=== PATIENT | male | born 1945 | race Caucasian/White ===

== ENCOUNTER → 2017-05-18 | Outpatient (CLI) | payer MEDICARE ==
[~2017-05-18] MED LIST: CATHETER FLUSH 10 ML SYR IV PRN; REGADENOSON 0.4 MG/5 ML SYR (LEXISCAN) IV ONE
[2017-05-18 13:00] VITALS: BP 128/70
[2017-05-18 13:05] VITALS: BP 137/69
[2017-05-18 13:07] VITALS: BP 130/69
--- NOTE | 2017-05-18 18:12 | STRESS TEST ---
DATE OF SERVICE: 05/18/2017 LEXISCAN MYOVIEW STRESS TEST REPORT REFERRING PHYSICIAN: Jayson Rolle DO. Baseline heart rate is 64. Baseline blood pressure 128/70. Baseline EKG sinus rhythm with right bundle-branch block. In summary, the patient received 10.62 mCi of technetium-99 Myoview and the resting images were obtained. Then, the patient received 0.4 mg of Lexiscan followed by 29.5 mCi of technetium-99 Myoview. Throughout the test, there were no EKG changes. The resting and stress images were reviewed and compared in the short axis, horizontal long axis, and vertical long axis views. Review of the images showed good radiotracer uptake with no significant ischemia or infarction. SSS is 2, SDS 0, TID value 0.97. On the gated images, the left ventricle appeared to be normal size with normal contractility. Calculated ejection fraction 71%. CONCLUSION: 1. The patient tolerated Lexiscan well. 2. No significant ischemia or infarction on SPECT images. 3. Normal left ventricular size with normal contractility. Calculated ejection fraction is 71%. Job ID: [id number] DocumentID: [id number] Dictated Date: 05/18/2017 14:40:14 Die Maker Stamping Date: 05/18/2017 18:12:04 Dictated By: BARBARA MARIE MD
== END ==
LOC: CARD 11:26
PROVIDERS: ATTEND Physician Assistant Medical
DX: I48.91 Unspecified atrial fibrillation (principal)
CPT/HCPCS: 78452; 93017

== ENCOUNTER 2017-07-28 10:12 | Day surgery (SDC) | payer MEDICARE ==
[~2017-07-28] VITALS: Ht 182.9 cm; Wt 95.3 kg
[2017-07-28] VITALS (12 sets, daily range): BP systolic 106–163; BP diastolic 64–95
[2017-07-28] MEDS ORDERED: NS IV 1000 ML 1,000 ML ONE ×2 (10:16→12:25)
[2017-07-28] MEDS ORDERED: LIDOCAINE 2% VISCOUS 15 ML UDC ONE (10:16)
[2017-07-28] MEDS ORDERED: NS IV 1000 ML 1,000 ML IV SCH (10:30)
[2017-07-28] MEDS ORDERED: APIX5TAB PO (11:09)
[2017-07-28] MEDS ORDERED: ASPI-983 PO (11:09)
[2017-07-28] MEDS ORDERED: MULT-35 PO (11:09)
[2017-07-28] MEDS ORDERED: VITA1CAP PO (11:09)
[2017-07-28] MEDS ORDERED: DRON400T2 PO (11:09)
[2017-07-28] MEDS ORDERED: ASCO10006 PO (11:09)
[2017-07-28] MEDS ORDERED: METO-387 PO (11:11)
[2017-07-28] MEDS ORDERED: SILD100T PO (11:14)
[2017-07-28] MEDS ORDERED: proPOfol 200 MG/20 ML (DIPRIVAN) VIAL IV ONE (12:20)
[2017-07-28] MEDS ORDERED: MIDAZOLAM 2 MG/2 ML (VERSED) VIAL ONE (12:20)
--- NOTE | 2017-07-28 13:13 | Progress Note-Standard ---
Standard Progress Note Progress Notes/Assess & Plan Time Seen by Provider: 12:36 Final Diagnosis Consulted for MAC sedation during CINDI/Cardioversion. Monitors on, equipment at bedside, history obtained. Propofol 70 mg IV, Versed 2 mg IV waldo well. VSS, report to RN care assumed. ASA 2 CHANTAL CRAWFORD CRNA Jul 28, 2017 13:13
--- NOTE | 2017-07-28 13:14 | Anesthesia-General Post-Op ---
MAC Patient Condition Mental Status/LOC: Same as Preop Cardiovascular: Satisfactory Nausea/Vomiting: Absent Respiratory: Satisfactory Pain: Controlled Complications: Absent Post Op Complications Complications None Follow Up Care/Instructions Patient Instructions None needed. Anesthesiology Discharge Order Discharge Order Patient is doing well, no complaints, stable vital signs, no apparent adverse anesthesia problems. No complications reported per nursing. CHANTAL CRAWFORD CRNA Jul 28, 2017 13:14
--- NOTE | 2017-07-28 13:15 | Progress Note-Standard ---
Standard Progress Note Progress Notes/Assess & Plan Time Seen by Provider: 12:36 Final Diagnosis addendum to previous record, diagnosis a-fib. CHANTAL CRAWFORD CRNA Jul 28, 2017 13:15
== END 2017-07-28 14:11 | disposition home or self-care (01) ==
LOC: SDC 10:12
PROVIDERS: ATTEND Internal Medicine Interventional Cardiology
DX: I48.0 Paroxysmal atrial fibrillation (principal); I08.1 Rheumatic disorders of both mitral and tricuspid valves
CPT/HCPCS: 93005; 93306; 93320; 93325

== ENCOUNTER → 2017-08-01 | Outpatient (CLI) | payer MEDICARE ==
[~2017-08-01] MED LIST changes: +APIX5TAB PO; +ASCO10006 PO; +ASPI-983 PO; -CATHETER FLUSH 10 ML SYR IV PRN; +DRON400T2 PO; +METO-387 PO; +MULT-35 PO; -REGADENOSON 0.4 MG/5 ML SYR (LEXISCAN) IV ONE; +SILD100T PO; +VITA1CAP PO
== END ==
LOC: CARD 10:19
PROVIDERS: ATTEND Internal Medicine Interventional Cardiology
DX: I10 Essential (primary) hypertension (principal); I48.1 Persistent atrial fibrillation; E66.3 Overweight; G47.30 Sleep apnea, unspecified

== ENCOUNTER 2017-10-13 06:49 | Day surgery (SDC) | payer MEDICARE ==
[~2017-10-13] VITALS: Ht 182.9 cm; Wt 95.3 kg
[2017-10-13] MEDS ORDERED: LIDOCAINE 1% INJ 20 ML 20 ML VIAL ONE (07:07)
[2017-10-13] MEDS ORDERED: NS IV 1000 ML 0 ML ONE (07:07)
[2017-10-13] MEDS ORDERED: NS IV 1000 ML 1,000 ML IV SCH (07:15)
[2017-10-13 07:22] VITALS: BP 127/75
== END 2017-10-13 09:57 | disposition home or self-care (01) ==
LOC: CATH 06:49
PROVIDERS: ATTEND Internal Medicine Interventional Cardiology
DX: I48.91 Unspecified atrial fibrillation (principal); I10 Essential (primary) hypertension; Z53.20 Procedure and treatment not carried out because of patient's decision for unspecified reasons
CPT/HCPCS: 87081; 93005

== ENCOUNTER → 2018-02-06 | Day surgery (SDC) | payer MEDICARE ==
[~2018-02-06] VITALS: Ht 182.9 cm; Wt 95.3 kg
[~2018-02-06] MED LIST changes: +NS IV 1000 ML 1,000 ML IV SCH
== END | disposition home or self-care (01) ==
LOC: CATH 11:35
PROVIDERS: ATTEND Internal Medicine Interventional Cardiology
DX: I48.1 Persistent atrial fibrillation (principal); G47.30 Sleep apnea, unspecified; I10 Essential (primary) hypertension; E66.3 Overweight; R00.1 Bradycardia, unspecified; Z79.899 Other long term (current) drug therapy; Z79.01 Long term (current) use of anticoagulants; Z87.891 Personal history of nicotine dependence; Z53.8 Procedure and treatment not carried out for other reasons; Z68.28 Body mass index [BMI] 28.0-28.9, adult
CPT/HCPCS: 93005

== ENCOUNTER → 2018-03-06 | Outpatient (CLI) | payer MEDICARE ==
[~2018-03-06] VITALS: Ht 182.9 cm; Wt 90.7 kg
[~2018-03-06] MED LIST changes: +LIDOCAINE 1% INJ 20 ML 20 ML VIAL INJ ONE; -NS IV 1000 ML 1,000 ML IV SCH
--- NOTE | 2018-03-06 11:18 | Diagnostic Imaging Report ---
INDICATION: Right breast lump. Patient reports prior breast injury. Ultrasound and mammogram demonstrate increased density and hypoechogenicity in the retroareolar right breast. Patient presents for biopsy. PROCEDURE: Patient was brought to the procedure room and placed on the table in the supine position. Ultrasound imaging of the right breast was performed to evaluate entry site. The right breast was then prepped and draped in usual sterile fashion. A small amount of 1% lidocaine was utilized for local anesthesia. 14-gauge Achieve needle was advanced and placed with its tip adjacent to the area of hypoechogenicity in the retroareolar right breast. A total of three core biopsies were obtained. Localizer clip was then deployed in the retroareolar region. Hemostasis was obtained using manual compression. Patient tolerated the procedure well and was sent for post procedure mammogram in satisfactory condition. IMPRESSION: Successful ultrasound guided core biopsy of the area of hypoechogenicity in the retroareolar right breast. Pathology results are currently pending. Dictated by: Dictated on workstation # [id number]
--- NOTE | 2018-03-06 11:23 | Diagnostic Imaging Report ---
INDICATION: Right breast density. Patient status post ultrasound-guided core biopsy. CC and ML views of the right breast were obtained post biopsy. Biopsy clip is identified in the retroareolar right breast. There is retroareolar density which may represent gynecomastia. No suspicious calcifications are seen IMPRESSION: Biopsy marker clip is located in the retroareolar right breast. Pathology results are currently pending. Dictated by: Dictated on workstation # [id number]
== END ==
LOC: RAD 09:22
PROVIDERS: ATTEND Surgery
DX: N60.91 Unspecified benign mammary dysplasia of right breast (principal); N61.0 Mastitis without abscess; N63.10 Unspecified lump in the right breast, unspecified quadrant
CPT/HCPCS: 19083; 88305

== ENCOUNTER → 2018-06-29 | Day surgery (SDC) | payer MEDICARE ==
[~2018-06-29] VITALS: Ht 182.9 cm; Wt 97.1 kg
[~2018-06-29] MED LIST changes: -LIDOCAINE 1% INJ 20 ML 20 ML VIAL INJ ONE; +LIDOCAINE 1% INJ 20 ML 20 ML VIAL ONE
--- OUTSIDE RECORDS SUMMARY | 2018-06-29 08:54 | XMS REPORT | Continuity of Care Document ---
Author Author [facility] Organization [facility] Address Unknown Phone Unavailable Allergies Active Description Code Type Severity Reaction Onset Reported/Identified Relationship to Patient Clinical Status Yes BEE MODERATE DERMATOLOGICAL - HIV Yes NO KNOWN DRUG ALLERGIES UNKNOWN NO KNOWN DRUG ALLERG Yes No Allergy Information Available [id number] Drug Allergy Unknown N/A 2017 Yes No Known Drug Allergies [id number] Drug Allergy Unknown N/A 07/28/2017 Medications Medication Packaging Start Date Stop Date Route Dosage Sig LACTATED RINGERS 500CC IV BAG INJ ml 07/26/2017 07/26/2017 ONCE&1507 ENOXAPARIN SYRINGE INJ 100 MG (LOVENOX SYRINGE) MG 07/26/2017 07/26/2017 ONCE&1517 LACTATED RINGERS 1000CC IV BAG INJ ml 05/26/2018 06/02/2018 CONTINUOUSEVERY 0 Hour CEFAZOLIN VIAL INJ 1 GM (ANCEF) GM 05/26/2018 05/26/2018 ONCE&1130 Problems Date Dx Coded Attending Type Code Diagnosis Diagnosed By 03/20/2016 PATEL WILLIAMSON MD Ot G47.33 OBSTRUCTIVE SLEEP APNEA (ADULT) (PEDIATR 03/22/2016 PATEL WILLIAMSON MD Ot G47.33 OBSTRUCTIVE SLEEP APNEA (ADULT) (PEDIATR 05/19/2017 MALLY KUNZ PA-C Ot I48.91 UNSPECIFIED ATRIAL FIBRILLATION 05/24/2017 MALLY KUNZ PA-C Ot I48.91 UNSPECIFIED ATRIAL FIBRILLATION 06/07/2017 MALLY KUNZ PA-C Ot I48.91 UNSPECIFIED ATRIAL FIBRILLATION 06/17/2017 MALLY KUNZ PA-C Ot I48.91 UNSPECIFIED ATRIAL FIBRILLATION 07/26/2017 Isidro Correa 427.31 ATRIAL FIBRILLATION 07/26/2017 Isidro Correa I48.91 UNSPECIFIED ATRIAL FIBRILLATION 07/28/2017 ARELI BRYANT, Cesia ERICKSON Ot I08.1 RHEUMATIC DISORDERS OF BOTH MITRAL AND T 07/28/2017 Cesia SINGLETON MD Ot I48.0 PAROXYSMAL ATRIAL FIBRILLATION 07/29/2017 ARELI BRYANT, Cesia ERICKSON Ot I08.1 RHEUMATIC DISORDERS OF BOTH MITRAL AND T 07/29/2017 ARELI BRYANT, Cesia ERICKSON Ot I48.0 PAROXYSMAL ATRIAL FIBRILLATION 08/02/2017 ARELI BRYANT, Cesia ERICKSON Ot E66.3 OVERWEIGHT 08/02/2017 Cesia SINGLETON MD Ot G47.30 SLEEP APNEA, UNSPECIFIED 08/02/2017 Cesia SINGLETON MD Ot I10 ESSENTIAL (PRIMARY) HYPERTENSION 08/02/2017 Cesia SINGLETON MD Ot I48.1 PERSISTENT ATRIAL FIBRILLATION 10/13/2017 Cesia SINGLETON MD Ot I10 ESSENTIAL (PRIMARY) HYPERTENSION 10/13/2017 Cesia SINGLETON MD Ot I48.91 UNSPECIFIED ATRIAL FIBRILLATION 10/13/2017 Cesia SINGLETON MD Ot Z53.20 PROC/TRTMT NOT CRD OUT BEC PT DECISION F 10/14/2017 Cesia SINGLETON MD Ot I10 ESSENTIAL (PRIMARY) HYPERTENSION 10/14/2017 Cesia SINGLETON MD Ot I48.91 UNSPECIFIED ATRIAL FIBRILLATION 10/14/2017 Cesia SINGLETON MD Ot Z53.20 PROC/TRTMT NOT CRD OUT BEC PT DECISION F 02/06/2018 MALLY KUNZ PA-C Ot I48.91 UNSPECIFIED ATRIAL FIBRILLATION 02/06/2018 Cesia SINGLETON MD Ot E66.3 OVERWEIGHT 02/06/2018 Cesia SINGLETON MD Ot G47.30 SLEEP APNEA, UNSPECIFIED 02/06/2018 Cesia SINGLETON MD Ot I10 ESSENTIAL (PRIMARY) HYPERTENSION 02/06/2018 Cesia SINGLETON MD Ot I48.1 PERSISTENT ATRIAL FIBRILLATION 02/08/2018 Cesia SINGLETON MD Ot E66.3 OVERWEIGHT 02/08/2018 Cesia SINGLETON MD Ot G47.30 SLEEP APNEA, UNSPECIFIED 02/08/2018 Cesia SINGLETON MD Ot I10 ESSENTIAL (PRIMARY) HYPERTENSION 02/08/2018 Cesia SINGLETON MD Ot I48.1 PERSISTENT ATRIAL FIBRILLATION 02/08/2018 Cesia SINGLETON MD Ot R00.1 BRADYCARDIA, UNSPECIFIED 02/08/2018 Cesia SINGLETON MD Ot Z53.8 PROCEDURE AND TREATMENT NOT CARRIED OUT 02/08/2018 Cesia SINGLETON MD Ot Z68.28 BODY MASS INDEX (BMI) 28.0-28.9, ADULT 02/08/2018 Cesia SINGLETON MD Ot Z79.01 FERTILIZER MIXER (CURRENT) USE OF ANTICOAGULANT 02/08/2018 Cesia SINGLETON MD Ot Z79.899 OTHER FERTILIZER MIXER (CURRENT) DRUG THERAPY 02/08/2018 Cesia SINGLETON MD Ot Z87.891 PERSONAL HISTORY OF NICOTINE DEPENDENCE 02/14/2018 Cesia SINGLETON MD Ot E66.3 OVERWEIGHT 02/14/2018 Cesia SINGLETON MD Ot G47.30 SLEEP APNEA, UNSPECIFIED 02/14/2018 Cesia SINGLETON MD Ot I10 ESSENTIAL (PRIMARY) HYPERTENSION 02/14/2018 Cesia SINGLETON MD Ot I48.1 PERSISTENT ATRIAL FIBRILLATION 02/14/2018 Cesia SINGLETON MD Ot R00.1 BRADYCARDIA, UNSPECIFIED 02/14/2018 Cesia SINGLETON MD Ot Z53.8 PROCEDURE AND TREATMENT NOT CARRIED OUT 02/14/2018 Cesia SINGLETON MD Ot Z68.28 BODY MASS INDEX (BMI) 28.0-28.9, ADULT 02/14/2018 Cesia SINGLETON MD Ot Z79.01 CUSTODIAL (CURRENT) USE OF ANTICOAGULANT 02/14/2018 Cesia SINGLETON MD Ot Z79.899 OTHER CUSTODIAL (CURRENT) DRUG THERAPY 02/14/2018 Cesia SINGLETON MD Ot Z87.891 PERSONAL HISTORY OF NICOTINE DEPENDENCE 02/14/2018 Cesia SINGLETON MD Ot E66.3 OVERWEIGHT 02/14/2018 Cesia SINGLETON MD Ot G47.30 SLEEP APNEA, UNSPECIFIED 02/14/2018 Cesia SINGLETON MD Ot I10 ESSENTIAL (PRIMARY) HYPERTENSION 02/14/2018 Cesia SINGLETON MD Ot I48.1 PERSISTENT ATRIAL FIBRILLATION 02/14/2018 Cesia SINGLETON MD, Ot R00.1 BRADYCARDIA, UNSPECIFIED 02/14/2018 Cesia SINGLETON MD Ot Z53.8 PROCEDURE AND TREATMENT NOT CARRIED OUT 02/14/2018 Cesia SINGLETON MD, Ot Z68.28 BODY MASS INDEX (BMI) 28.0-28.9, ADULT 02/14/2018 Cesia SINGLETON MD Ot Z79.01 CUSTODIAL (CURRENT) USE OF ANTICOAGULANT 02/14/2018 Cesia SINGLETON MD, Ot Z79.899 OTHER FERTILIZER MIXER (CURRENT) DRUG THERAPY 02/14/2018 Cesia SINGLETON MD, Ot Z87.891 PERSONAL HISTORY OF NICOTINE DEPENDENCE 02/27/2018 MATTKIMBER NATHAN DO Ot R92.8 OTH ABN AND INCONCLUSIVE FINDINGS ON DX 03/03/2018 [facility] KIMBER DICK Ot R92.8 OTH ABN AND INCONCLUSIVE FINDINGS ON DX 03/06/2018 MATT KIMBER DICK Ot N63.10 UNSPECIFIED LUMP IN THE RIGHT BREAST, UN 03/06/2018 MATT KIMBER DICK Ot R92.8 OTH ABN AND INCONCLUSIVE FINDINGS ON DX 03/16/2018 MATT RADHA DICKTIE Ot N60.91 UNSPECIFIED BENIGN MAMMARY DYSPLASIA OF 03/16/2018 MATT RADHA DICKTIE Ot N61.0 MASTITIS WITHOUT ABSCESS 03/16/2018 MATT KIMBER DICK Ot N63.10 UNSPECIFIED LUMP IN THE RIGHT BREAST, UN 04/03/2018 MATT RADHA DICKTIE Ot N60.91 UNSPECIFIED BENIGN MAMMARY DYSPLASIA OF 04/03/2018 MATT RADHA DICKTIE Ot N61.0 MASTITIS WITHOUT ABSCESS 04/03/2018 MATT AMANDA DICKROUTIE Ot N63.10 UNSPECIFIED LUMP IN THE RIGHT BREAST, UN 04/07/2018 MATT KIMBER DICK Ot N60.91 UNSPECIFIED BENIGN MAMMARY DYSPLASIA OF 04/07/2018 MATTKIMBER NATHAN DO Ot N61.0 MASTITIS WITHOUT ABSCESS 04/07/2018 KIMBER GUTIERREZ DO Ot N63.10 UNSPECIFIED LUMP IN THE RIGHT BREAST, UN Procedures There is no data. Results Test Result Range Comprehensive Metabolic Panel - 01/06/17 08:32 Albumin 4.0 g/dL 3.6-5.1 ALP 91 U/L 35-130 ALT 17 U/L 6-45 Anion Gap 11 6-14 AST 19 U/L 2-40 BUN 16 mg/dL 5-25 Calcium 9.6 mg/dL 8.3-10.4 Chloride 100 mmol/L 95-114 CO2 26 mEq/L 22-33 Creat 1.09 mg/dL 0.50-1.50 eGFR 66 mL/min/1.73m2 >59 Globulin 3.0 g/dL 2.3-3.5 Glucose 93 mg/dL 70-110 Osmo 276 280-295 Potassium 4.4 mmol/L 3.5-5.3 Sodium 133 mmol/L 134-148 TBil 0.5 mg/dL 0.2-1.2 TP 7.0 g/dL 6.0-8.3 Holter Montor 24 Hour - 05/05/17 09:06 Holter Monitor 24 Hour Complete Cardiac Panel - 07/26/17 14:49 CK 93 U/L 26-174 CK-MB 1.2 ng/ml 0.0-9.2 Myoglobin 33.5 ng/ml 1.6-154.9 Troponin <0.020 ng/mL 0.0-0.4 Methicillin resistant Staphylococcus aureus (MRSA) screening culture - 07:25 Methicillin resistant Staphylococcus aureus (MRSA) screening culture NEG NRG MRSA Screen - 05/17/18 12:45 FINAL CULTURE RESULTS MRSA Negative Nasal Culture MEDIA PLATED Setup at 12:55 on 05/17/2018 Protime - 05/17/18 12:45 INR 1.4 1.0-4.0 Protime 16.4 Sec 9.9-12.8 Protime - 05/26/18 10:17 INR 1.1 1.0-4.0 Protime 12.8 Sec 9.9-12.8 Surgical Pathology - 05/26/18 12:10 Surg Path Sent to [facility] Pathology Testosterone - 06/05/18 09:51 Testosterone 468.53 ng/dL 127.18-1020.36 Encounters ACCT No. Visit Date/Time Discharge Status Pt. Type Provider Facility Loc./Unit Complaint [id number] 04/11/2014 10:54:09 04/11/2014 23:59:59 CLS Outpatient Patrica Randolph [id number] 03/06/2018 09:22:00 03/06/2018 23:59:59 CLS Outpatient KIMBER GUTIERREZ DO [facility] RAD RT BREAST MASS [id number] 02/06/2018 11:35:00 02/06/2018 23:59:59 CLS Outpatient Cesia SINGLETON MD [facility] CATH AF [id number] 10/13/2017 06:49:00 10/13/2017 09:57:00 DIS Outpatient Cesia SINGLETON MD [facility] AFIB,HTN [id number] 08/01/2017 10:19:00 08/01/2017 23:59:59 CLS Outpatient Cesia SINGLETON MD [facility] CARD I10 HTN [id number] 07/28/2017 10:12:00 07/28/2017 14:11:00 DIS Outpatient Cesia SINGLETON MD [facility] SDC PERSISTENT AFIB W/RVR [id number] 05/18/2017 11:26:00 05/18/2017 23:59:59 CLS Outpatient MALLY KUNZ PA-C [facility] CARD AF [id number] 03/19/2016 20:00:00 03/20/2016 06:10:00 DIS Outpatient PATEL WILLIAMSON MD [facility] SLEEP PAUL [id number] 06/29/2018 10:00:00 PEN Preadmit Cesia SINGLETON MD [facility] AF-FERTILIZER MIXER SURVEILLANCE [id number] 05/17/2018 11:56:00 Document Registration [id number] 06/05/2018 09:45:00 06/05/2018 23:59:00 DIS Outpatient Jayson Rolle [id number] 05/26/2018 08:44:00 05/26/2018 13:24:00 DIS Outpatient Kimber Gutierrez [id number] 05/17/2018 11:56:00 05/17/2018 23:59:00 DIS Outpatient Amanda Gutierrezaden [id number] 02/15/2018 09:51:00 02/15/2018 23:59:00 DIS Outpatient MattAmanda mckeonaden [id number] 02/02/2018 09:44:00 02/02/2018 23:59:00 DIS Outpatient Jayson Rolle [id number] 11/30/2017 10:00:00 11/30/2017 23:59:00 DIS Outpatient Jayson Rolle [id number] 07/26/2017 14:38:00 07/26/2017 17:10:00 DIS Outpatient Isidro Correa [id number] 05/05/2017 09:03:00 05/05/2017 23:59:00 DIS Outpatient Adrián Llanos [id number] 01/06/2017 08:27:00 01/06/2017 23:59:00 DIS Outpatient Adrián Llanos [id number] 07/26/2017 15:17:53 Document Registration
[2018-06-29 09:24] VITALS: BP 133/98
--- NOTE | 2018-06-29 14:10 | Implantation of Loop Monitor ---
Implant of Loop Monitior IMPLANTATION OF LOOP MONITOR REPORT DATE OF PROCEDURE: 06/29/18 PERFORMING PHYSICIAN: Dr. Kye Perez. INDICATION: Paroxysmal atrial fibrillation, Long-term surveillance of atrial fibrillation PREOP DIAGNOSIS: Paroxysmal atrial fibrillation, Long-term surveillance of atrial fibrillation POSTOP DIAGNOSIS: Paroxysmal Atrial fibrillation, s/p implantation of loop recorder. PROCEDURE DETAILS: The patient is a 73 male with history of paroxysmal atrial fibrillation requiring long-term surveillance. Therefore implantable loop recorder was discussed and agreed with the patient. Informed consent was taken. All risks and complications were discussed at length. The patient was draped and prepped in the usual sterile fashion. Local anesthesia was lidocaine, which was given in the substernal area close to the 4th intercostal space. Loop monitor was implanted according to the protocol. Steri-Strips were placed at the end of the procedure. There were no complications and the patient tolerated the procedure well. The device was interrogated with a voltage of 0.26 mV. ANESTHESIA: Local anesthesia with lidocaine. COMPLICATIONS: None CONTRAST/FLUOROSCOPY: None CONCLUSION: 1. Successful implantation of loop monitor for proximal atrial fibrillation. 2. No complication and the patient tolerated the procedure well. Marianne Perez MD, RS, CCDS Cardiac Electrophysiology Cesia PEREZ MD Jun 29, 2018 2:10 pm
== END | disposition home or self-care (01) ==
LOC: CATH 08:48
PROVIDERS: ATTEND Internal Medicine Interventional Cardiology
DX: I48.0 Paroxysmal atrial fibrillation (principal); I10 Essential (primary) hypertension; R00.1 Bradycardia, unspecified; G47.30 Sleep apnea, unspecified; Z87.891 Personal history of nicotine dependence; Z79.01 Long term (current) use of anticoagulants; Z79.899 Other long term (current) drug therapy
CPT/HCPCS: 33285

== ENCOUNTER → 2018-08-02 | Outpatient (CLI) | payer MEDICARE ==
[~2018-08-02] MED LIST changes: -LIDOCAINE 1% INJ 20 ML 20 ML VIAL ONE
== END | disposition home or self-care (01) ==
LOC: PREOP 05:50
PROVIDERS: ATTEND Internal Medicine Interventional Cardiology
DX: Z01.818 Encounter for other preprocedural examination (principal)

== ENCOUNTER 2018-08-14 06:59 | Day surgery (SDC) | payer MEDICARE ==
[~2018-08-14] VITALS: Ht 182.9 cm; Wt 90.7 kg
[2018-08-14] VITALS (24 sets, daily range): BP systolic 94–141; BP diastolic 43–102
[~2018-08-14 06:59] MED LIST changes: +HEPARIN IV ONE; +HEParin 1000 UNIT/ML (10ML VIAL) FOR BOLUS ONE; +LIDOCAINE 1% INJ 20 ML 20 ML VIAL ONE; +NS IV 1000 ML 1,000 ML ONE
[2018-08-14] MEDS ORDERED: HEParin DRIP 25000 UNIT/500ML 500 ML IV ONE (07:01)
[2018-08-14] MEDS: NS IV 1000 ML 1,000 ML IV SCH ×3 (07:06→17:23)
[2018-08-14 07:20] LABS: HEMOGLOBIN 16.3 G/DL (13.3-17.7); MEAN PLATELET VOLUME 9.9 FL (7.4-10.4); RED CELL DISTRIBUTION WIDTH 13.6 % (10.0-14.5); WHITE BLOOD COUNT 7.7 10^3/uL (4.3-11.0)
[2018-08-14] MEDS ORDERED: SEVOFLURANE (ULTANE) 15 ML INHAL SOLN ONE ×3 (07:21→15:12)
[2018-08-14] MEDS ORDERED: fentaNYL INJECTION 100 MCG/2 ML AMP ONE (07:21)
[2018-08-14] MEDS ORDERED: ONDANSETRON 4 MG/2 ML (SDV) Z0FRAN ONE (07:21)
[2018-08-14] MEDS ORDERED: proPOfol 200 MG/20 ML (DIPRIVAN) VIAL IV ONE (07:21)
[2018-08-14] MEDS ORDERED: MIDAZOLAM 2 MG/2 ML (VERSED) VIAL ONE (07:21)
[2018-08-14] MEDS ORDERED: ROCURONIUM 10 MG/ML 5 ML SYRINGE IV ONE ×2 (07:21→10:59)
[2018-08-14 07:34] LABS: INR 1.1 (0.8-1.4); PROTHROMBIN TIME PATIENT 14.7 SEC (12.2-14.7)
[2018-08-14 07:41] LABS: ALANINE AMINOTRANSFERASE 28 U/L (0-55); ALBUMIN 4.2 GM/DL (3.2-4.5); ALKALINE PHOSPHATASE 107 U/L (40-136); BILIRUBIN,TOTAL 0.5 MG/DL (0.1-1.0); BUN/CREATININE RATIO 16; CALCIUM 9.9 MG/DL (8.5-10.1); CARBON DIOXIDE 24 MMOL/L (21-32); CHLORIDE 104 MMOL/L (98-107); CREATININE SERUM 1.17 MG/DL (0.60-1.30); GFR ESTIMATED > 60; GLUCOSE 94 MG/DL (70-105); POTASSIUM 4.3 MMOL/L (3.6-5.0); SODIUM 139 MMOL/L (135-145); TOTAL PROTEIN 7.4 GM/DL (6.4-8.2)
[2018-08-14] MEDS ORDERED: LIDOCAINE 1% INJ 20 ML 20 ML VIAL ONE (07:54)
[2018-08-14 08:04] LABS: BILIRUBIN,URINE NEGATIVE (NEGATIVE); CLARITY,URINE CLEAR; COLOR,URINE YELLOW; GLUCOSE, URINE (UA) NEGATIVE (NEGATIVE); KETONES,URINE NEGATIVE (NEGATIVE); LEUKOCYTE ESTERASE ,URINE NEGATIVE (NEGATIVE); NITRITE,URINE NEGATIVE (NEGATIVE); PH,URINE 6.5 (5-9); PROTEIN,URINE NEGATIVE (NEGATIVE); UROBILINOGEN,URINE NORMAL (NORMAL)
[2018-08-14 08:13] LABS: AMORPHOUS SEDIMENT,UR RARE AMOR URATES /LPF; BACTERIA,URINE NEGATIVE /HPF; RBC,URINE RARE /HPF; SQUAMOUS EPITHELIAL CELL,UR RARE /HPF
[2018-08-14] MEDS ORDERED: PHENYLEPHRINE 100 MCG/ML 10 ML (ANESTHESIA) SYR ONE ×2 (08:13→14:40)
[2018-08-14] MEDS ORDERED: ISOPROTERENOL 0.2 MG/D5W 50 ML IV ONE (08:15)
[2018-08-14] MEDS ORDERED: LACTATED RINGERS 1,000 ML IV ONE ×2 (08:36→09:26)
[2018-08-14] MEDS ORDERED: HEParin 1000 UNIT/ML (10ML VIAL) FOR BOLUS ONE ×2 (10:17→11:39)
[2018-08-14] MEDS ORDERED: PROTAMINE 50 MG/5 ML VIAL ONE (15:18)
--- NOTE | 2018-08-14 15:18 | Cardiac Procedure Note-CS/ASA ---
Pre-Procedure Note Pre-Op Procedure Note H&P Reviewed The H&P was reviewed, patient examined and no changes noted. Date H&P Reviewed: August 14, 2018 Time H&P Reviewed: 08:00 Conscious Sedation Pre-Proced Time 08:00 ASA Score 3 For ASA 3 and 4: Consider anesthesia and medical clearance. Also, for patients with a history of failed moderate sedation consider anesthesia. Airway Lungs Heart ASA score ASA 1: a normal healthy patient ASA 2: a patient with a mild systemic disease (mid diabetes, controlled hypertension, obesity ASA 3: a patient with a severe systemic disease that limits activity (angina , COPD, prior Myocardial infarction) ASA 4: a patient with an incapacitating disease that is a constant threat to life (CHF, renal failure) ASA 5: a moribund patient not expected to survive 24 hrs. (ruptured aneurysm) ASA 6: a declared brain- patient whose organs are being harvested. For emergent operations, add the letter E after the classification Mallampati Classification Grade 1 Sedation Plan Analgesia, Amnesia, Plan communicated to team members, Discussed options with patient/fam, Discussed risks with patient/fam The patient is an appropriate candidate to undergo the planned procedure, sedation, and anesthesia. The patient immediately re-assessed prior to indication. Cesia SINGLETON MD August 14, 2018 15:18
--- NOTE | 2018-08-14 15:19 | Electrophysiology Procedure ---
EP Procedure DATE OF SERVICE:08/14/18 CARDIAC RADIATION THERAPY TECHNOLOGIST: Marianne Perez MD, [facility], [facility]. INDICATION: Persistent atrial fibrillation. PREOPERATIVE DIAGNOSIS: Persistent atrial fibrillation. POSTOPERATIVE DIAGNOSES: 1. Persistent atrial fibrillation, status post atrial fibrillation ablation with PVI, roofline, CFAE ablation. 2. Left atrial flutter, mitral isthmus dependent, status post left atrial flutter ablation. 3. Typical right atrial flutter, CTI dependent, status post right atrial flutter ablation. HISTORY: This is a 73-year-old gentleman who has history of paroxysmal atrial fibrillation for 17 years and has been on flecainide and aspirin. Patient was previously not on oral anticoagulation but was started on [place]. He had a previous transesophageal echocardiogram and cardioversion done on 07/28/2017. However during the CINDI the patient converted to sinus rhythm on his own. Normal EF. Patient continued to have paroxysmal atrial fibrillation but over the last one year converted to persistent atrial fibrillation with controlled ventricular rate. The patient was refractory to multiple antiarrhythmics including multaq, propafenone, flecainide. Since rhythm control is over to fall to statin for this particular patient and implantable loop recorder was done. Also the patient has a class I indication for atrial fibrillation ablation. Atrial fibrillation ablation was discussed at length including all risks and complications. PROCEDURE PERFORMED: 1. Comprehensive EP study with induction. 2. Fluoroscopy. 3. Left atrial pacing and recording. 3. Drug infusion 4. Pulmonary vein isolation. 5. Additional atrial fibrillation ablation with roofline. 6. Additional atrial fibrillation ablation with complex fractionated atrial electrogram ablation. 7. Left atrial flutter, mitral isthmus dependent, ablation performed. 8. Ablation of typical atrial flutter (CTI dependent). 9. Comprehensive 3D mapping with the carto system. 10. Intracardiac echocardiogram. COMPLICATION: None. ESTIMATED BLOOD LOSS: 10 mL. CONTRAST USED: None. FLUOROSCOPY TIME: 20.4 minutes. FLUOROSCOPY DOSE: 1809 mgy. SPECIMENS: None. ANESTHESIA: Done by our anesthesia colleagues. ANTICOAGULATION: Eliquis, IV heparin. PROCEDURE IN DETAIL: After informed consent was taken, the patient was brought to the EP lab. Anesthesia was provided by our anesthesia colleagues. The patient was draped and prepped in the usual sterile fashion. The patient presented to the EP lab in atrial fibrillation rhythm.3D mapping was done with Carto system. Left atrial pacing and recording was also done. Access was gained in the right femoral vein with two 8-Japanese sheaths. Left access in left femoral vein was gained with two 6 Japanese sheaths. A his catheter and a CS catheter were advanced through the 6 Japanese sheaths in the left femoral vein. Intracardiac echocardiogram was performed with an ICE catheter. Numerous images were taken of the RV, RA, left atrium and LV. There was no pericardial effusion. There was no thrombus in the left atrium or left atrial appendage. All 4 pulmonary veins were identified. A carto-sound map was created with the ice catheter. We then advanced a guidewire into the superior vena cava. A long sheath was advanced with the transseptal needle. Under fluoroscopic and echocardiogram guidance, transseptal puncture was done once through the fossa ovalis. Left atrial pressure was documented. IV heparin bolus was given followed by heparin infusion. ACT target over 350 seconds. Patient was on uninterrupted oral anticoagulation therapy. The transseptal needle was taken out and a PENTARAY mapping catheter was utilized to perform voltage mapping of the left atrium. We also performed activation and propagation mapping. Right-sided catheters demonstrated an organized atrial tachycardia, however mapping catheter in the left atrium demonstrated atrial fibrillation. We also performed mapping for complex fractionated atrial electrograms, these were tagged. These atrial electrograms were found in the roof area, posterior wall as well as left superior pulmonary veins. Therefore we started with CFAE ablations. No significant change in atrial fibrillation was noted. No clear drivers were identified. We then proceeded with pulmonary vein isolation. Pulmonary vein isolation was performed for the left pulmonary veins. Exit block was confirmed. We then proceeded to the right pulmonary vein. Exit block was again confirmed with high output pacing in each vein and demonstrating dissociation of the left atrium. The patient continued to be in atrial fibrillation therefore we proceeded with the roofline. During ablation for the roofline, patient converted to sinus rhythm. However in a few minutes the patient went back into organized atrial flutter. We performed activation and propagation mapping of left atrial flutter and demonstrated a reentrant phenomenon which was mitral annular dependent. Therefore a mitral line was created from the posterior mitral annulus to the left superior pulmonary vein. The atrial flutter cycle length was around 240 ms. Once left flutter line was completed, the cycle length changed from 240 ms to 275 ms. Re-mapping demonstrated block at the level of the mitral line. After 30 minutes, we rechecked all the 4 pulmonary veins and demonstrated exit block despite high output pacing. We then pulled the ablation catheter as well as the transseptal catheter into the right atrium. IV heparin was discontinued. Intracardiac echocardiogram demonstrated no pericardial effusion. Activation mapping was performed in the right atrium. This demonstrated a reentrant atrial flutter. Entrainment was performed by pacing at the CTI and post-pacing interval was within 20 ms of the tachycardia cycle length, confirming typical right atrial flutter. Typical atrial flutter ablation was performed under ultrasound guidance. At the CTI a pouch was demonstrated by ultrasound and a ridge at the caval aspect. A deflectable steering catheter was utilized to perform typical atrial flutter ablation. Termination of tachycardia was noted once the line was almost completed. We rechecked the line and potential gaps re-ablated. We checked bidirectional block by pacing from opposite aspects of the line with the conduction time of around 200 ms. High dose Isuprel infusion was given at 20 g with no induction of atrial fibrillation, atrial tachycardia or atrial flutter. We then waited for 30 minutes and reconfirmed bidirectional block across the CTI ablation line. Final intracardiac echocardiogram images demonstrated no pericardial effusion. All the sheaths were taken out. 10 mg of IV protamine was given. Figure of 8 sutures were done in both venous access and manual compression done for 5 minutes. Hemostasis was achieved. Patient tolerated the procedure well and did not have any complications. The patient left the EP lab in sinus rhythm. Total ablation time 5295 seconds. PLAN: The patient will be observed overnight and will be discharged home tomorrow with precise followup instructions. Marianne Perez MD, RS, CCDS Cardiac Electrophysiology Cesia PEREZ MD August 14, 2018 15:19
--- NOTE | 2018-08-14 15:27 | History & Physicial-Cardiolgy ---
HPI-Cardiology Cardiology Consultation: Date of Consultation 08/14/18 Date of Admission Attending Physician Cesia Perez MD Admitting Physician Jayson Rolle DO Consulting Physician Cesia PEREZ MD HPI: Time Seen by a Provider: 08:00 Chief Complaint: Persistent atrial fibrillation. This is a 73-year-old gentleman who has history of paroxysmal atrial fibrillation for 17 years and has been on flecainide and aspirin. Patient was previously not on oral anticoagulation but was started on [place]'s. He had a previous transesophageal echocardiogram and cardioversion done on 07/28/2017. However during the CINDI the patient converted to sinus rhythm on his own. Normal EF. Patient continued to have paroxysmal atrial fibrillation but over the last one year converted to persistent atrial fibrillation with controlled ventricular rate. The patient was refractory to multiple antiarrhythmics including multaq, propafenone, flecainide. Since rhythm control is over to fall to statin for this particular patient and implantable loop recorder was done. Also the patient has a class I indication for atrial fibrillation ablation. Atrial fibrillation ablation was discussed at length including all risks and complications. Review of Systems-Cardiology Review of Systems Constitutional: As described under HPI; No As described under HPI, No no symptoms reported, No chills, No fever, No lightheadedness Eyes: No As described under HPI, No no symptoms reported, No blindness, No blurred vision, No contact lenses, No drainage, No decreased acuity, No foreign body sensation, No pain, No vision change Ears/Nose/Throat: No As described under HPI, No no symptoms reported, No chronic hearing loss, No ear discharge, No ear pain, No nasal drainage, No ulcerations Respiratory: No no symptoms reported; As described under HPI; No As described under HPI, No cough, No orthopnea, No shortness of breath, No SOB with excertion Cardiovascular: No no symptoms reported; As described under HPI; No As described under HPI, No chest pain, No edema, No irregular heart rate, No lightheadedness; palpitations Gastrointestinal: No no symptoms reported, No As described under HPI, No abdomen distended, No abdominal pain, No blood streaked bowels, No constipation , No diarrhea, No nausea, No vomiting, No stool coloration changes Genitourinary: No As described under HPI, No burning, No dysuria, No discharge , No frequency, No flank pain, No hematuria, No urgency Skin: No rash, No skin related problems, No ulcerations Psychiatric/Neurological: No anxiety, No depression, No seizure, No focal weakness, No syncope Hematologic: No bleeding abnormalities [id number] Hx Patient Social History Alcohol Use: Denies Use Recreational Drug Use: No Smoking Status: Former Smoker Type Used: Cigarettes 2nd Hand Smoke Exposure: No Recent Foreign Travel: No Recent Infectious Disease Expo: No Immunizations Up To Date Date of Pneumonia Vaccine: Jan 28, 2016 Date of Influenza Vaccine: Jan 11, 2018 Past Medical History PMH As described under Assessment. Allergies and Home Medications Allergies Coded Allergies: No Known Drug Allergies (Unverified , 07/28/17) Home Medications Apixaban 5 Mg Tablet, 5 MG PO BID, (Reported) Ascorbic Acid 1,000 Mg Tablet, 1,000 MG PO DAILY, (Reported) Metoprolol Succinate 25 Mg Tab.er.24h, 25 MG PO HS, (Reported) Multivitamin 1 Each Tablet, 0.5 TAB PO BID, (Reported) Sildenafil Citrate 100 Mg Tablet, 100 MG PO UD PRN for ED, (Reported) Vitamin B Complex 1 Each Capsule, 1 CAP PO DAILY, (Reported) Patient Home Medication List Home Medication List Reviewed: Yes Physical Exam-Cardiology Physical Exam Vital Signs/I&O 08/14/18 07:15 Temp 96.9 Pulse 86 Resp 16 B/P (MAP) 141/102 (115) Pulse Ox 96 O2 Delivery Room Air Capillary Refill : Constitutional: appears stated age, AAO x 3; No apparent distress; well- developed, well-nourished HEENT: PERRL; No normal ENT inspection, No TMs normal, No pharynx normal, No scleral icterus (R), No scleral icterus (L), No pale conjunctivae (R), No pale conjunctivae (L), No photophobia, No TM abnormal (R), No TM abnormal (L), No pharyngeal erythema, No tonsillar exudate, No other, No discharge, No EOMI; hearing is well preserved; No hard of hearing; oral hygience is good; No ulceration, No xanthelasmas are seen Neck: No carotid bruit; carotid pulses are 2 + bilaterally Respiratory: No accessory muscle use, No respiratory distress, No chest tender , No chest expansion is symmetric; chest is bilaterally symmetric; No lungs clear to percussion; lungs clear to auscultation; No crackles, No rhonchi, No rales, No stridor, No wheezing, No pleural rub, No other Cardiovascular: irregularly irregular, tachycardia, S1 and S2 Gastrointestinal: No tender, No soft, No round, No distended, No pulsatile mass , No organomegaly, No guarding, No rebound, No tenderness, No hernia, No mass, No audible bowel sounds, No abnormal bowel sounds, No abdominal bruits, No spleenomegaly, No other Rectal: deferred Extremities: No normal range of motion, No non-tender, No normal inspection, No pedal edema, No calf tenderness, No normal capillary refill, No pelvis stable , No calf tenderness, No inflammation, No pedal edema, No slow capillary refill , No swelling, No other, No abrasion, No clubbing, No cyanosis, No ecchymosis, No laceration, No no lower extremity edema bilateral, No significant edema, No tenderness, No wound Neurologic/Psychiatric: no motor/sensory deficits, alert, normal mood/affect, oriented x 3, power is 5/5 both on sides Skin: No normal color, No warm/dry, No cyanosis, No cool, No diaphoresis, No damp, No ecchymosis, No jaundice, No mottled, No pallor, No rash, No tattoos/ piercings, No ulcerations, No rash on exposed areas, No ulcerations on exposed areas, No other Data Review Labs Laboratory Tests 08/14/18 07:15: White Blood Count 7.7, Red Blood Count 4.93, Hemoglobin 16.3, Hematocrit 47, Mean Corpuscular Volume 96, Mean Corpuscular Hemoglobin 33, Mean Corpuscular Hemoglobin Concent 34, Red Cell Distribution Width 13.6, Platelet Count 211, Mean Platelet Volume 9.9, Prothrombin Time 14.7, INR Comment 1.1, Activated Partial Thromboplast Time 38H, Sodium Level 139, Potassium Level 4.3, Chloride Level 104, Carbon Dioxide Level 24, Anion Gap 11, Blood Urea Nitrogen 19H, Creatinine 1.17, Estimat Glomerular Filtration Rate > 60, BUN/Creatinine Ratio 16, Glucose Level 94, Calcium Level 9.9, Corrected Calcium 9.7, Total Bilirubin 0.5, Aspartate Amino Transf (AST/SGOT) 24, Alanine Aminotransferase (ALT/SGPT) 28, Alkaline Phosphatase 107, Total Protein 7.4, Albumin 4.2 08/14/18 07:50: Urine Color YELLOW, Urine Clarity CLEAR, Urine pH 6.5, Urine Specific [place] 1.010L, Urine Protein NEGATIVE, Urine Glucose (UA) NEGATIVE, Urine Ketones NEGATIVE, Urine Nitrite NEGATIVE, Urine Bilirubin NEGATIVE, Urine Urobilinogen NORMAL, Urine Leukocyte Esterase NEGATIVE, Urine RBC (Auto) NEGATIVE, Urine RBC RARE, Urine WBC NONE, Urine Squamous Epithelial Cells RARE, Urine Crystals PRESENTH, Urine Amorphous Sediment RARE BABAK URATESH, Urine Bacteria NEGATIVE, Urine Casts NONE, Urine Mucus NEGATIVE, Urine Culture Indicated NO ECG Impression ECG Initial ECG Impression: Atrial Fibrillation w/RVR A/P-Cardiology Assessment/Admission Diagnosis Persistent atrial fibrillation refractory to numerous antiarrhythmic agents. Admission Status: Observation Plan Persistent atrial fibrillation ablation is recommended. All risks and complication were explained in detail. Informed consent was taken. Cesia PEREZ MD August 14, 2018 15:27
[2018-08-14] MEDS ORDERED: PATIENT MAY USE OWN MEDS, ALL PO SCH (15:30)
[2018-08-14] MEDS ORDERED: morphine INJ 10 MG/ML 1ML (SYR OR VIAL) IVP ONE (16:00)
[2018-08-14] MEDS ORDERED: MEPERIDINE (DEMEROL) INJ 50 MG/ML IVP ONE (16:00)
[2018-08-14] MEDS ORDERED: ONDANSETRON 4 MG/2 ML (SDV) Z0FRAN IVP PRN (16:00)
[2018-08-14] MEDS ORDERED: PROMETHAZINE INJ 25 MG/ML (PHENERGAN) AMP IVP ONE (16:00)
[2018-08-14] MEDS: APIXABAN 5 MG (ELIQUIS) TABLET PO SCH (20:58)
[2018-08-15] VITALS (8 sets, daily range): BP systolic 113–145; BP diastolic 46–58
[2018-08-15] MEDS: NS IV 1000 ML 1,000 ML IV SCH ×2 (03:00→04:14)
[2018-08-15 03:42] LABS: HEMOGLOBIN 14.6 G/DL (13.3-17.7); RED CELL DISTRIBUTION WIDTH 13.6 % (10.0-14.5); WHITE BLOOD COUNT 10.4 10^3/uL (4.3-11.0)
[2018-08-15 04:01] LABS: BUN/CREATININE RATIO 15; CALCIUM 8.3 MG/DL (8.5-10.1); CARBON DIOXIDE 18 MMOL/L (21-32); CHLORIDE 110 MMOL/L (98-107); CREATININE SERUM 0.86 MG/DL (0.60-1.30); GFR ESTIMATED > 60; GLUCOSE 105 MG/DL (70-105); POTASSIUM 3.8 MMOL/L (3.6-5.0); SODIUM 138 MMOL/L (135-145)
--- NOTE | 2018-08-15 08:18 | NUR ---
THIS NURSE REMOVED L RADIAL ARTLINE AT THIS TIME. PRESSURE HELD FOR 5 MINUTES ET PRESSURE BANDAGE APPLIED. ALSO REMOVED PT R AC IV ET R FORARM IV. TIP INTACT ON ALL REMOVED. DRESSINGS APPLIED.
[2018-08-15] MEDS: APIXABAN 5 MG (ELIQUIS) TABLET PO SCH (08:31)
--- NOTE | 2018-08-15 10:01 | Anesthesia-General Post-Op ---
General Patient Condition Mental Status/LOC: Same as Preop Cardiovascular: Satisfactory Nausea/Vomiting: Absent Respiratory: Satisfactory Pain: Controlled Complications: Absent Post Op Complications Complications None Follow Up Care/Instructions Patient Instructions None needed. Anesthesia/Patient Condition Patient Condition Patient is doing well, no complaints, stable vital signs, no apparent adverse anesthesia problems. No complications reported per nursing. CHANTAL CRAWFORD CRNA August 15, 2018 10:01
--- NOTE | 2018-08-15 11:19 | Cardiology Discharge Summary ---
Diagnosis/Chief Complaint Date of Admission 08/14/2018 Date of Discharge 08/15/2018 Admission Diagnosis Persistent atrial fibrillation Final/Discharge Diagnosis 1. Persistent atrial fibrillation, 2. Left atrial flutter, 3. Typical right atrial flutter. Chief Complaint/HPI Chief Complaint/HPI This is a 73-year-old gentleman who has history of paroxysmal atrial fibrillation for 17 years and has been on flecainide and aspirin. Patient was previously not on oral anticoagulation but was started on [place]'s. He had a previous transesophageal echocardiogram and cardioversion done on 07/28/2017. However during the C[facility]I the patient converted to sinus rhythm on his own. Normal EF. Patient continued to have paroxysmal atrial fibrillation but over the last one year converted to persistent atrial fibrillation with controlled ventricular rate. The patient was refractory to multiple antiarrhythmics including multaq, propafenone, flecainide. Since rhythm control is over to fall to statin for this particular patient and implantable loop recorder was done. Also the patient has a class I indication for atrial fibrillation ablation. Atrial fibrillation ablation was discussed at length including all risks and complications. Discharge Summary Procedures Persistent atrial flutter ablation with pulmonary vein isolation, roof line, complex fractionated atrial electrogram ablation. Mitral isthmus dependent left atrial flutter treated with mitral line. Typical right atrial flutter treated with CTI line. Discharge Physical Examination Normal cardiovascular examination. Hospital Course Was the Problem List Reviewed?: Yes Stable overnight. Pending Labs Laboratory Tests 08/15/18 03:30: White Blood Count 10.4, Red Blood Count 4.41, Hemoglobin 14.6, Hematocrit 42, Mean Corpuscular Volume 96, Mean Corpuscular Hemoglobin 33, Mean Corpuscular Hemoglobin Concent 35, Red Cell Distribution Width 13.6, Platelet Count 164, Mean Platelet Volume 10.0, Sodium Level 138, Potassium Level 3.8, Chloride Level 110, Carbon Dioxide Level 18, Anion Gap 10, Blood Urea Nitrogen 13, Creatinine 0.86, Estimat Glomerular Filtration Rate > 60, BUN/Creatinine Ratio 15, Glucose Level 105, Calcium Level 8.3 Discussion & Recommendations Discussion Discharge took over 30 where to complete. Discharge sections were discussed at length with the patient. Patient will continue same outpatient medications and follow-up in the office. Follow up appt.: Dr. Perez in 6-8 weeks. Dicharge Diet: Cardiac Diet Activity as Tolerated: Yes Home Medications Reviewed patient Home Medication Reconciliation performed by pharmacy medication reconciliations program technician and/or nursing. Patients Allergies have been reviewed. Discharge Home Medications: Reviewed and agree with Discharge Medication list on patient's Discharge Instruction sheet Condition at discharge Stable. Instructions to patient/family Discussed with the patient and family. Cesia PEREZ MD August 15, 2018 11:19
--- NOTE | 2018-08-15 11:20 | Discharge Inst-Post CATH ---
Discharge Inst-CATH/EP Post Cardiac Cath/EP D/C Inst Follow Up/Plan Discussed with the patient and family. Follow-up in 6-8 weeks. <b>CARDIAC CATH/EP PROCEDURE DISCHARGE INSTRUCTIONS</b> Cardiac Rehab Please be expecting a follow up call from Cardiac Rehab within in one week. ACTIVITY * Go Home directly and rest. * Limit activity of the leg (or wrist if it was used) for 7 days including aerobics, swimming, jogging, bicycling, etc. * Restrict stair-climbing for 7 days if possible, if not, climb up with your non -cath leg, then bring together on the same step. * Avoid lifting, pushing, pulling or excessive movement of the affected extremity for 7 days. * Customary sexual activity may be resumed after 2 days-use caution not to use a position that strains or causes pain to the affected extremity. * No driving for 24 hours. * NO SMOKING. * Avoid straining for bowel movements for 7 days. * Gentle walking on level ground is allowed. * Returning to work will depend on the type of procedure and the results. Your doctor will discuss this with you. CALL YOUR DOCTOR FOR ANY OF THE FOLLOWING: *If bleeding from the puncture site occurs- Apply gentle pressure to site with clean cloth and call your doctor or EMS. * If a knot or lump forms under the skin, increases in size, or causes pain. * If bruising appears to be worsening or moving further down your leg instead of disappearing. * Temperature above 101 F. CARE OF YOUR GROIN INCISION; * Bruising or purple discoloration of the skin near the puncture site is common. * You may shower only, no bathtub bathing for 5 days. Be careful to avoid slipping as your leg may feel stiff. * If a closure device was used on your femoral artery, please see the attached guide regarding care of the device and your leg. * Leave dressing on FOR 24 hours. CARE OF YOUR WRIST INCISION; * Bruising or purple discoloration of the skin near the puncture site is common. * You may shower. * DO NOT submerge wrist. * Leave dressing on FOR 24 hours. Cesia SINGLETON MD August 15, 2018 11:20
== END 2018-08-15 10:55 | disposition home or self-care (01) ==
LOC: CATH 06:59 → ICU 16:41 → CATH 08-15 10:55
PROVIDERS: ATTEND Internal Medicine Interventional Cardiology
DX: I48.1 Persistent atrial fibrillation (principal); I48.3 Typical atrial flutter; Z87.891 Personal history of nicotine dependence; Z79.01 Long term (current) use of anticoagulants; Z79.899 Other long term (current) drug therapy
CPT/HCPCS: 36415; 80048; 80053; 81000; 85027; 85610; 85730; 87081; 93005; 93613; 93653; 93655; 93656; 93657; 93662

== ENCOUNTER → 2020-08-22 | Outpatient (CLI) | payer MEDICARE ==
[~2020-08-22] MED LIST changes: +ASCO100024 PO; -ASCO10006 PO; +ASPI-1238 PO; -ASPI-983 PO; -DRON400T2 PO; +DRON400T6 PO; -HEPARIN IV ONE; -HEParin 1000 UNIT/ML (10ML VIAL) FOR BOLUS ONE; -LIDOCAINE 1% INJ 20 ML 20 ML VIAL ONE; -METO-387 PO; +MTP25TSR PO; -NS IV 1000 ML 1,000 ML ONE
[2020-08-22 10:17] LABS: HEMATOCRIT 47 % (40-54); HEMOGLOBIN 15.9 g/dL (13.3-17.7); MEAN CORPUSCULAR HEMOGLOBIN 32 pg (25-34); MEAN CORPUSCULAR HGB CONC 34 g/dL (32-36); MEAN CORPUSCULAR VOLUME 95 fL (80-99); PLATELET COUNT 189 10^3/uL (130-400); WHITE BLOOD COUNT 6.8 10^3/uL (4.3-11.0)
[2020-08-22 10:34] LABS: ALBUMIN 4.3 GM/DL (3.2-4.5); POTASSIUM 4.2 MMOL/L (3.6-5.0)
[2020-08-22 10:36] LABS: CALCIUM 9.8 MG/DL (8.5-10.1)
[2020-08-22 10:37] LABS: TOTAL PROTEIN 7.6 GM/DL (6.4-8.2)
[2020-08-22 10:39] LABS: BILIRUBIN,TOTAL 0.7 MG/DL (0.1-1.0)
[2020-08-22 10:40] LABS: CREATININE SERUM 1.18 MG/DL (0.60-1.30)
[2020-08-22 10:43] LABS: MAGNESIUM 2.2 MG/DL (1.6-2.4)
[2020-08-22 10:45] LABS: ERYTHROCYTE SEDIMENTATION RATE 10 MM/HR (0-30)
== END ==
LOC: CARD 09:55
PROVIDERS: ATTEND Nurse Practitioner Family
DX: I48.0 Paroxysmal atrial fibrillation (principal)
CPT/HCPCS: 36415; 80053; 83735; 84443; 85027; 85652; 93306

== ENCOUNTER → 2022-10-14 | Outpatient (CLI) | payer MEDICARE | LOC: CARD 11:36 | PROVIDERS: ATTEND Nurse Practitioner Family | DX: I27.20 Pulmonary hypertension, unspecified (principal) | CPT/HCPCS: 93306 ==